=== PATIENT | male | born 1965 | race Caucasian/White ===

== ENCOUNTER 2018-04-19 20:06 | Inpatient (IN) | payer OTHER ==
[~2018-04-19 20:06] MED LIST: ISOVUE-370 76%-LOCM 1 ML ONE
[2018-04-19 20:55] LABS: #Basophils 0.1 thou/uL (0.0-0.2); #Eosinphils 0.3 thou/uL (0.0-0.7); #Lymphocytes 2.6 thou/uL (1.20-3.40); #Monocytes 0.9 thou/uL (0.11-0.59); #Neutrophils 4.5 thou/uL (1.40-6.50); %Basophils 1.2 % (0.0-1.0); %Eosinophils 3.8 % (0.0-10.0); %Lymphocytes 31.1 % (21.0-51.0); %Neutrophils 52.9 % (42.0-75.0); Hemoglobin 16.1 g/dL (14.0-18.0); Mean Corpuscular HGB CONC 34.8 g/dL (32.0-36.0); Mean Corpuscular Volume 88.9 fl (80.0-94.0); Mean Platelet Volume 7.2 fL (7.4-10.4); Platelet Count 239 thou/uL (130-400); RBC Distribution Width 12.2 % (11.5-14.5); White Blood Cell (WBC) Count 8.5 thou/uL (4.8-10.8)
[2018-04-19 20:59] LABS: INR-International Normal Ratio 1.1; PTT 28.9 SEC (22.9-36.1); Prothrombin Time 13.8 SEC (12.0-14.7)
[2018-04-19 21:01] LABS: ALT (SGPT) 25 U/L (8-55); AST (SGOT) 21 U/L (5-34); Albumin 3.9 g/dL (3.5-5.0); Alkaline Phosphatase 80 U/L (40-150); Anion Gap 13 mmol/L (10-20); BUN (Urea Nitrogen) 14 mg/dL (8.4-25.7); Bilirubin, Total 0.4 mg/dL (0.2-1.2); Calc. Creatinine Clearance 0 mL/min (70-130); Calcium 8.8 mg/dL (7.8-10.44); Carbon Dioxide 23 mmol/L (22-29); Chloride 107 mmol/L (98-107); Estimated GFR-MDRD 59; Globulin 2.5 g/dL (2.4-3.5); Glucose 88 mg/dL (70-105); Lipase 35 U/L (8-78); Magnesium 2.4 mg/dL (1.6-2.6); Potassium 4.4 mmol/L (3.5-5.1); Protein, Total 6.4 g/dL (6.0-8.3); Sodium 139 mmol/L (136-145)
[2018-04-19 21:06] LABS: CKMB 0.5 ng/mL (0-6.6); Troponin I Less than 0.010 ng/mL (< 0.028)
[2018-04-19 21:14] LABS: Bilirubin Negative (Negative); Blood, Urine Negative (Negative); Clarity CLEAR (Clear); Glucose, Urine (Dipstick) Negative (Negative); Leukocyte Negative (Negative); Nitrite Negative (Negative); Protein, Urine (Dipstick) Negative (Neg-Trace); Specific Gravity, Urine 1.008 (1.002-1.036); Urobilinogen 0.2 mg/dL (0.2-1.0)
--- NOTE | 2018-04-19 21:56 | RAD ---
PORTABLE UPRIGHT FRONTAL CHEST RADIOGRAPH: 04/19/2018 HISTORY: Weakness. Dizziness. Diarrhea. COMPARISON: None. FINDINGS: No pneumothorax or pleural fluid. No focal consolidation or alveolar edema. Heart and mediastinal c ontours appear grossly unremarkable. There are a few punctate foci of nonspecific lucency overlying the soft tissues in the left axillary region and the left chest wall. These foci may represent subtle areas of subcutaneous gas, in the pr oper clinical setting. Clinical correlation is required. Follow-up PA and lateral chest imaging may be beneficial. IMPRESSION: Questionable small foci of subcutaneous gas versus artifact within the left chest wall. No lobar con solidation or alveolar edema. POS: [facility]
--- NOTE | 2018-04-19 21:57 | CT ---
CT HEAD WITHOUT CONTRAST: 04/19/2018 HISTORY: Dizziness and weakness. COMPARISON: 05/03/2016 TECHNIQUE: Serial axial CT imaging at 5 mm intervals, from the vertex through the skull base, without contrast. FINDINGS: The imaged paranasal sinuses and mastoid air cells are well aerated. No displaced calvarial fracture . No intracranial hemorrhage, midline shift, mass effect, or ventricular enlargement. IMPRESSION: No acute findings. POS: [facility]
--- NOTE | 2018-04-19 22:47 | CT ---
CT ANGIOGRAM OF THE CHEST AND ABDOMEN: 04/19/2018 HISTORY: Dizziness and weakness. Evaluate for aortic dissection. COMPARISON: None. TECHNIQUE: Serial axial CT imaging is obtained at 2.5 mm intervals, from the thoracic inlet through the aortic b ifurcation, with IV contrast, using a CT angiogram protocol. Coronal and sagittal 3D reformatted jessica ging obtained. FINDINGS: No lymphadenopathy is noted within the chest. Scattered coronary arterial calcification is seen. The innominate artery is tortuous. Origins of the great vessels appear unremarkable. No evidence fo r dissection or aneurysm is seen involving the thoracic aorta. There is atherosclerotic calcificatio n of the abdominal aortic arch distally. No pleural, pericardial, or mediastinal fluid is noted. The lung parenchyma appears grossly unremarkable bilaterally. No acute osseous abnormality is seen w ithin the chest. No endobronchial lesion is evident. The pelvis is not imaged on this exam. Imaged bowel demonstrates no evidence for obstruction. There is diverticulosis of the descending colon, incompletely assessed on this exam. The appendix appears within normal limits. The liver, gallbladder, spleen, pancreas, adrenal glands, and kidneys appear grossly unremarkable. There is no evidence for aneurysm or dissection of the abdominal aorta. The celiac axis, superior me senteric artery, bilateral renal arteries, and inferior mesenteric artery are all patent. There is mild contour irregularity involving the proximal aspect of the left common iliac artery, med ially, on axial image 171, sagittal image 101, and coronal image 104. This could represent a small s accular aneurysm of the proximal left common iliac artery versus a fenestration of the distal abdomin al aorta. This is not an acute abnormality. If this represents a saccular aneurysm, it measures in the 8-9 mm range. There is degenerative change at the lumbosacral junction with disk space narrowing and degenerative endplate change. IMPRESSION: No evidence for aneurysm or dissection of the abdominal aorta. There is subtle contour irregularity involving the proximal left common iliac artery, for which a follow-up study in six months is suggest ed. No acute findings are evident on this exam. POS: [facility]
--- NOTE | 2018-04-19 23:49 | PDOC.FPRHP ---
- History of Present Illness Chief Complaint: dizziness, dehydration, diarrhea History of Present Illness: PCP: RENETTA 52 yo M w/ PMH of HTN, HLD presents to ED for evaluation of dizziness that he states started today that occurs when rising from sitting or sitting to standing. He does endorse a recent history of diarrhea of up to 12x/day that has decreased to 2x/day over the last 2 days. He was seen by pcp in OP office and started on cipro and encouraged to increase PO intake. He reports dizziness occurs after standing or from lying to sitting. He denies associated cp, sob. Does endorse some nausea, but denies vomiting. Denies melena, BRBPR, fever, chills, sweats. Additionally pt reports occasional feeling that his mouth feels heavy as if he left the dentist. Denies tingling periorally or spasm/tetany. ED Course: 81 mg aspirin - Allergies/Adverse Reactions Allergies Allergy/AdvReac Type Severity Reaction Status Date / Time Sulfa (Sulfonamide Allergy "low blood Verified 04/20/18 00:53 Antibiotics) pressure & passed out" - Home Medications Medication Instructions Recorded Confirmed Type Aspirin [Aspirin EC] 81 mg PO QAM 09/19/16 04/20/18 History Atorvastatin Calcium 40 mg PO QPM 09/19/16 04/20/18 History Cyclobenzaprine [Flexeril] 10 mg PO BID 09/19/16 04/20/18 History Esomeprazole Magnesium [NexIUM] 20 mg PO QAM 09/19/16 04/20/18 History Fluticasone Propionate [Flonase 2 spray EA NARE DAILY 09/19/16 04/20/18 History Nasal [place]] Metoprolol Succinate 25 mg PO QPM 09/19/16 04/20/18 History Naproxen [Naproxen] 500 mg PO BID 09/19/16 04/20/18 History Pregabalin [Lyrica] 150 mg PO TID 09/19/16 04/20/18 History Montelukast Sodium [Singulair] 10 mg PO DAILY 04/20/18 04/20/18 History Multivitamin [Multi-Vitamin Daily] 1 tablet PO DAILY 04/20/18 04/20/18 History [place]-3 Fatty Acids/Fish Oil 1 cap PO DAILY 04/20/18 04/20/18 History [[place] 3 Fish Oil Softgel] Ranitidine HCl 150 mg PO BID 04/20/18 04/20/18 History - History PMHx: HTN, HLD, h/o subdural hematoma, h/o cervical spinal fusion PSHx: cervical spinal fusion, colonoscopy X2, rt wrist surgery, pediatric bladder surgery FHx: Stroke paternal/maternal grandparents, "some heart attacks" Social: current everyday tobacco user smokeless 1 can/day for 40 years, no alcohol, no drugs - Review of Systems General: denies: fever/chills, weight/appetite/sleep changes, fatigue Eyes: reports: vision changes. denies: eye pain ENT: denies: nasal congestion, rhinorrhea Respiratory: denies: cough, congestion, shortness of breath Cardiovascular: denies: chest pain, palpitation, edema Gastrointestinal: reports: nausea, diarrhea. denies: vomiting, constipation, abdominal pain, GI bleeding Genitourinary: denies: incontinence, dysuria Skin: denies: rashes, lesions Musculoskeletal: denies: pain, arthritis/arthralgias Neurological: reports: numbness, weakness. denies: syncope - Vital signs BP: 137/103 HR: 90 RR: 15 Tmax: 98.2 Pox: 97% on RA Wt: 136Kg - Physical Exam Constitutional: NAD, awake, alert and oriented HEENT: normocephalic and atraumatic, PERRLA, EOMI, conjunctiva clear, no scleral icterus, grossly normal vision, TM's clear and intact, grossly normal hearing, MMM, oropharynx clear Neck: supple, trachea midline, no LAD, no JVD, no thyromegaly Heart: RRR, normal S1/S2, no murmurs/rubs/gallops, pulses present, no edema Lungs: CTAB, no respiratory distress, good air movement, no rales/rhonchi, no wheezing, no retractions Abdomen: soft, non-tender, bowel sounds present, no masses/distention Musculoskeletal: normal structure, normal tone Neurological: no focal deficit, CN II-XII intact, other (Negative head impulse, no nystagmus, negative test of skew) Skin: no rash/lesions, good turgor, capillary refill <2 seconds Heme/Lymphatic: no unusual bruising or bleeding, no purpura Psychiatric: normal mood and affect FMR H&P: Results - Labs Result Diagrams: 04/19/18 20:19 04/19/18 20:19 Lab results: WBC 8.5 thou/uL (4.8-10.8) 04/19/18 20:19 Hgb 16.1 g/dL (14.0-18.0) 04/19/18 20:19 Hct 46.3 % (42.0-52.0) 04/19/18 20:19 MCV 88.9 fl (80.0-94.0) 04/19/18 20:19 Plt Count 239 thou/uL (130-400) 04/19/18 20:19 Neutrophils % 52.9 % (42.0-75.0) 04/19/18 20:19 Sodium 139 mmol/L (136-145) 04/19/18 20:19 Potassium 4.4 mmol/L (3.5-5.1) 04/19/18 20:19 Chloride 107 mmol/L (98-107) 04/19/18 20:19 Carbon Dioxide 23 mmol/L (22-29) 04/19/18 20:19 BUN 14 mg/dL (8.4-25.7) 04/19/18 20:19 Creatinine 1.27 mg/dL (0.6-1.3) 04/19/18 20:19 Glucose 88 mg/dL (70-105) 04/19/18 20:19 Calcium 8.8 mg/dL (7.8-10.44) 04/19/18 20:19 Total Bilirubin 0.4 mg/dL (0.2-1.2) 04/19/18 20:19 AST 21 U/L (5-34) 04/19/18 20:19 ALT 25 U/L (8-55) 04/19/18 20:19 Alkaline Phosphatase 80 U/L (40-150) 04/19/18 20:19 CK-MB (CK-2) 0.5 ng/mL (0-6.6) 04/19/18 20:19 Serum Total Protein 6.4 g/dL (6.0-8.3) 04/19/18 20:19 Albumin 3.9 g/dL (3.5-5.0) 04/19/18 20:19 Lipase 35 U/L (8-78) 04/19/18 20:19 Urine Ketones Negative mg/dL (Negative) 04/19/18 21:01 Urine Blood Negative (Negative) 04/19/18 21:01 Urine Nitrite Negative (Negative) 04/19/18 21:01 Ur Leukocyte Esterase Negative (Negative) 04/19/18 21:01 - EKG Interpretation EKG: low voltage, otherwise NSR - Radiology Interpretation Chest x-ray Status: report reviewed by me (NAD, possible air is artifact confirmed no free air on CT) CT scan - chest Status: report reviewed by me (No acute disease) CT scan - head Status: report reviewed by me (No acute intracranial process) FMR H&P: A/P - Problem List (1) Dehydration Current Visit: Yes Status: Acute Code(s): E86.0 - DEHYDRATION (2) Neuropathy Current Visit: Yes Status: Acute Code(s): G62.9 - POLYNEUROPATHY, UNSPECIFIED (3) Perioral numbness Current Visit: Yes Status: Acute Code(s): R20.0 - ANESTHESIA OF SKIN (4) Back spasm Current Visit: Yes Status: Acute Code(s): M62.830 - MUSCLE SPASM OF BACK (5) Colitis Current Visit: Yes Status: Acute Code(s): K52.9 - NONINFECTIVE GASTROENTERITIS AND COLITIS, UNSPECIFIED (6) Hypertension Current Visit: Yes Status: Acute Code(s): I10 - ESSENTIAL (PRIMARY) HYPERTENSION - Plan 1) Dehydration: s/p 2lns in er, will check am orhtostatics and fluid resuscitate with LR @ 200mls/hr -admit to stroke obs as ER concered with possible TIA vs cva 2) Perioral tingling: pts labs wnl, will admit to stroke OBs although pts neuro exam is normal and he has a negative hints exam in addition to normal head CT. Will give aspirin statin and continue neuro checks. Ca++ normal regarding tingling, possibly 2/2 volume depletion from colitis, continue to monitor and consider am MRI 3) Colitis: per history, symptoms improving, will give last dose of cipro and IVF resuscitate 4) Neuropathy: home meds 5) HTN: Pt hypotensive now and slightly volume depleted, replenish fluids and hold PM BP meds 6) Code Status: Full 7) PPX: pepcid and scds for gi and DVT ppx respectively Disposition/LOS: stable, </= 2 days FMR H&P: Upper Level - Pertinent history Pt is a 52 yo M who presents to ED with 1 week hx of diarrhea. Saw his PCP and was given a shot of rocephin, cipro rx and phenergan rx. States he was having 10 -12 bms of diarrhea daily at peak but now mostly resolved, didn't have diarrhea today, finishing up cipro tomorrow. He came in today with his dad and step mom as he was feeling very weak, dizzy, like he would faint when he got up to walk and felt some "chin heaviness like when you go to the dentist." - Pertinent findings 119/77 78 18 98.2 95% RA Gen: does not appear in distress, morbid obesity HEENT: oropharynx clear without exudates or erythema Lungs: CTA Cardiac: RRR, no murmurs, gallops, clicks, rubs, difficult to ascultate to full extent due to habitus LE: no swelling Neuro: CN II-XII intact, no cerebellar findings, no dysdiadychokinesia - Plan Date/Time: 04/19/18 1237 I, Miranda Barron, have evaluated this patient and agree with findings/plan as outlined by music internship resident. Pertinent changes/additions are listed here. 1. moderate dehydration 2/2 gastroenteritis-orthostatics positive, pt is very dizzy upon standing, living at home alone right now as his g/f is out of town. Re-hydrate with NS. Zofran. Repeat orthostatics in morning. Given cipro by his PCP and diarrhea is mostly resolved, but was having 10-12 bms per day. Finish cipro he was given. Since diarrhea is resolved cannot consider c.diff, if diarrhea returns consider. 2. perioral numbness- labs were normal for electrolyte abnormalities-possibly related to orthostasis, but ER wants to r/o CVA, admit to stroke unit and neuro checks, consider AM MRI, brain CT unremarkable, normal neuro exam per me. 3. back muscle spasm-continue flexeril 4. neuropathy- home lyrica 5. htn- hold metrolol slight hypotension due to dehydration Attending Addendum - Attending Addendum Date/Time: 04/20/18 [id number] I personally evaluated the patient and discussed the management with Dr. Becerra. I agree with the History, Examination, Assessment and Plan documented above with any addition or exceptions noted below. Neuro exam is normal. Our clinical suspicion of CVA is low. He does not have any NIHSS defined disabling deficits. Numbness in mouth and and dizziness are probably from his dehydration. However, MRI can definitively evaluate for ischemia and will be considered.
[2018-04-20 00:03] LABS: Troponin I Less than 0.010 ng/mL (< 0.028)
[2018-04-20] MEDS ORDERED: Meclizine HCl 25 MG TAB PO PRN (00:36)
[2018-04-20] MEDS ORDERED: Acetaminophen 325 MG TAB PO PRN (00:36)
[2018-04-20] MEDS ORDERED: Ondansetron ODT 4 MG TAB PO PRN (00:36)
[2018-04-20] MEDS ORDERED: Ondansetron HCl/PF 4 MG/2 ML Vial IVP PRN (00:36)
[2018-04-20] MEDS: Lactated Ringer's 1,000 ML IV SCH ×3 (01:21→11:47)
[2018-04-20] MEDS ORDERED: Pregabalin 75 MG CAP PO SCH ×2 (01:45→09:00)
[2018-04-20 02:37] VITALS: BMI 46.7
[2018-04-20 02:59] LABS: Troponin I Less than 0.010 ng/mL (< 0.028)
[2018-04-20 03:06] LABS: Cardiac Risk 3.6 (Less than 4.5)
[2018-04-20] MEDS ORDERED: Cipro 250 MG TAB PO SCH (06:00)
[2018-04-20] MEDS ORDERED: Multivitamin W/ Minerals 1 TAB PO SCH (09:00)
[2018-04-20] MEDS ORDERED: Aspirin 81 mg Enteric Coated Tablet PO SCH ×2 (09:00)
[2018-04-20] MEDS ORDERED: Fish Oil 1,000 MG CAP PO SCH (09:00)
[2018-04-20] MEDS ORDERED: Fluticasone Propionate Nasal Spray 16 gm Bottle NASAL SCH (09:00)
[2018-04-20] MEDS ORDERED: Naproxen 500 MG TAB PO SCH (09:00)
[2018-04-20] MEDS ORDERED: Famotidine 20 MG TAB PO PRN (09:00)
[2018-04-20] MEDS ORDERED: Montelukast Sodium 10 mg Tablet PO SCH (09:00)
[2018-04-20] MEDS ORDERED: Cyclobenzaprine 10 MG TAB PO SCH (09:00)
[2018-04-20] MEDS ORDERED: Famotidine 20 MG TAB PO SCH (09:00)
[2018-04-20] MEDS ORDERED: Non-Formulary Item 1 EACH (Esomeprazole Magnesium [Nexium] 20 MG) PO SCH (09:00)
--- NOTE | 2018-04-20 11:23 | PDOC.FM ---
- Subjective Subjective: Mr. Schofield says he is feeling much better this morning. His dizziness and light headedness has completely resolved and he has no further mouth symptoms. He states that his mouth felt numb and heavy like he had been at the dentist. He also has intermittent neuropathy pain from disk issues in his neck. He has seen Dr. Bro for this in the past in addition to a history of subdural hematoma in July of 2015. At that time, Dr. Arauz and Adali tried to arrange an MRI with sedation (due to clausterphobia) but it was unable to be done in our facility and after that he felt well and did not go for additional follow-up. - Objective MAR Reviewed: Yes Vital Signs & Weight: Vital Signs (12 hours) Temp Pulse Resp BP BP BP Pulse Ox 04/20/18 09:17 98 04/20/18 08:00 98.5 F 74 14 04/20/18 07:57 98.5 F 74 14 109/59 L 98 04/20/18 06:27 67 118/71 04/20/18 06:26 80 115/65 04/20/18 04:39 97.7 F 64 20 120/58 L 99 04/20/18 02:48 96 04/20/18 00:15 98.0 F 76 20 04/20/18 00:11 98.0 F 76 20 128/72 96 Weight Weight 143.426 kg I&O: 04/19/18 04/20/18 04/21/18 06:59 06:59 06:59 Intake Total 1680 Balance 1680 Result Diagrams: 04/19/18 20:19 04/19/18 20:19 EKG Reviewed by me: Yes Radiology Reviewed by me: Yes <Kerry Almanzar - Last Filed: 04/20/18 11:32> - Objective Vital Signs & Weight: Vital Signs (12 hours) Temp Pulse Resp BP BP BP Pulse Ox 04/20/18 11:37 98.6 F 72 16 106/57 L 97 04/20/18 09:17 98 04/20/18 08:00 98.5 F 74 14 04/20/18 07:57 98.5 F 74 14 109/59 L 98 04/20/18 06:27 67 118/71 04/20/18 06:26 80 115/65 04/20/18 04:39 97.7 F 64 20 120/58 L 99 Weight Weight 143.426 kg I&O: 04/19/18 04/20/18 04/21/18 06:59 06:59 06:59 Intake Total 1680 Balance 1680 Result Diagrams: 04/19/18 20:19 04/19/18 20:19 <Keaton Cheng - Last Filed: 04/20/18 15:03> Phys Exam - Physical Examination Constitutional: NAD HEENT: PERRLA, moist MMs, sclera anicteric Neck: supple Respiratory: no wheezing, clear to auscultation bilateral Cardiovascular: RRR, no significant murmur Gastrointestinal: soft, non-tender, no distention, positive bowel sounds Musculoskeletal: no edema, pulses present Neurological: non-focal, moves all 4 limbs Psychiatric: normal affect, A&O x 3 Skin: no rash, cap refill <2 seconds <Kerry Almanzar - Last Filed: 04/20/18 11:32> Dx/Plan (1) History of subdural hematoma Code(s): Z86.79 - PERSONAL HISTORY OF OTHER DISEASES OF THE CIRCULATORY SYSTEM Status: Acute (2) Back spasm Code(s): M62.830 - MUSCLE SPASM OF BACK Status: Acute (3) Colitis Code(s): K52.9 - NONINFECTIVE GASTROENTERITIS AND COLITIS, UNSPECIFIED Status : Acute (4) Dehydration Code(s): E86.0 - DEHYDRATION Status: Acute (5) Hypertension Code(s): I10 - ESSENTIAL (PRIMARY) HYPERTENSION Status: Acute (6) Neuropathy Code(s): G62.9 - POLYNEUROPATHY, UNSPECIFIED Status: Acute (7) Perioral numbness Code(s): R20.0 - ANESTHESIA OF SKIN Status: Acute - Plan Plan: 1. Moderate dehydration 2/2 gastroenteritis - s/p adequate fluid resuscitation - VS stable and labs WNL - No BM in > 24 hours - s/p > 3 days cipro OP, will discontinue 2. Oral numbness - Patient describes it as a heaviness in his mouth that has since resolved - It was never persistent and would last for 1 to 30 seconds at a time - No ongoing symptoms or focal neurologic deficits apart from slight discrepancy in L lateral gaze with how far R eye is able to look left - D/w neurosurgery who do not recommend additional imaging in at this time - Discussed recommendation for neurology f/u and he desires to do this outpatient and not wait until this evening for inpatient consult - Will refer to Dr. Arauz for f/u outpatient 3. HTN - Continue home medications, ASA and statin 4. Neuropathy - Continue home medications and consider OP f/u with Dr. Bro <Kerry Almanzar - Last Filed: 04/20/18 11:32> Attending Addendum - Attending Addendum Date/Time: 04/20/18 4730 I personally evaluated the patient and discussed the management with Dr. Almanzar I agree with the History, Examination, Assessment and Plan documented above with any addition or exceptions noted below.Patient feeling much improved no diarrhea and ambulatory status additional history of cervical degenerative disease and previous subdural hematoma related to fall while bowling in July 2017. Patient was not able to proceed with prior recommended MRI due to Claustrophobia and inability to sedate by anesthesia related to patient's body habitus. Discussed benefits of further inpatient evaluation and feel comfortable allowing discharge and f/u with Neurology as outpatient. <Keaton Cheng - Last Filed: 04/20/18 15:03>
[2018-04-20 11:38] VITALS: BP 106/57; TEMP 98.6
[2018-04-20] MEDS ORDERED: Atorvastatin Calcium 40 MG TAB PO SCH ×2 (21:00)
--- NOTE | 2018-04-21 13:19 | DIS-2 ---
DATE OF ADMISSION: 04/20/2018 DATE OF DISCHARGE: 04/20/2018 RESIDENT: Kerry Almanzar M.D. ADMITTING ATTENDING: Aurelio Ravi M.D. DISCHARGE ATTENDING: Keaton Cheng MD CONSULTS: Neurology was initially consulted however patient decided to just follow up as an outpatie nt. PROCEDURES: Brain CT (04/19/2018): No acute findings. Chest x-ray (04/19/2018): Questionable small foci of subcutaneous gas versus artifact to the left ch est wall. No lobar consolidation or alveolar edema. CT dissection (04/19/2018): No evidence of aneurysmal resection of the abdominal aorta. There is newsome btle contour irregularity involving the proximal left common iliac artery for which a followup-study in 6 months is suggested. No acute findings are evident on this exam. PRIMARY DIAGNOSIS: 1. Moderate dehydration secondary to gastroenteritis. SECONDARY DIAGNOSES: 1. Hypertension. 2. Neuropathy. 3. Oral numbness. 4. Gastroesophageal reflux disease. 5. Seasonal allergies. 6. Chronic pain. 7. Hyperlipidemia. 8. History of subdural hematoma. DISCHARGE MEDICATIONS: 1. Esomeprazole 20 mg p.o. daily. 2. Lyrica 150 mg p.o. t.i.d. 3. Aspirin 81 mg p.o. daily. 4. Naproxen 500 mg p.o. b.i.d. 5. Metoprolol 25 mg p.o. at bedtime. 6. Fluticasone 2 sprays each daily. 7. Flexeril 10 mg p.o. b.i.d. 8. Atorvastatin 40 mg p.o. at bedtime. 9. Ranitidine 150 mg p.o. b.i.d. 10. Singulair 10 mg p.o. daily. 11. [place] 3 fish oil 1 cap daily. 12. Multivitamin 1 cap daily. DISCONTINUED MEDICATIONS: None. HISTORY OF PRESENT ILLNESS AND HOSPITAL COURSE: Mr. 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 He also no roxane on admission to be having some oral symptoms such as numbness, heaviness and possibly some slurre d speech. A CT was done which was negative and he was admitted to the hospital for fluids and furthe r neurological evaluation. The patient developed no focal neurologic findings and he reported that t he numbness in his mouth would intermittently come and go, but had resolved since the time of admissi on. The case was discussed with neurosurgery regarding whether a CT was appropriate and it was recom mended that patient arrange for Neurology followup prior to any further imaging. He desired to leave and to follow up outpatient. He has established with Dr. Arauz and plans to follow up with him. At this time, I recommended to continue aspirin, statin, and blood pressure control as well as absence o f any tobacco and regular exercise and weight loss. Regarding the CT findings above, a repeat CT may be considered in 6 months. Otherwise, he is stable for discharge. DISPOSITION: Stable. DISCHARGE INSTRUCTIONS: 1. Location: Home. 2. Diet: Heart healthy. 3. Activity: As tolerated. 4. Followup: With PCP within [address] Arauz within 2-3 weeks.
== END 2018-04-20 12:34 | disposition home or self-care (01) | DRG 641 ==
LOC: ERS 20:06 → 2SE 04-20
PROVIDERS: ADMIT Family Medicine; ATTEND Family Medicine
DX: E86.0 Dehydration (principal); K52.9 Noninfective gastroenteritis and colitis, unspecified; G62.9 Polyneuropathy, unspecified; R20.0 Anesthesia of skin; I95.9 Hypotension, unspecified; M62.830 Muscle spasm of back; I10 Essential (primary) hypertension; E78.5 Hyperlipidemia, unspecified; Z72.0 Tobacco use; Z86.79 Personal history of other diseases of the circulatory system
CPT/HCPCS: 36415; 70450; 71045; 71275; 80053; 80061; 81003; 82553; 83690; 83735; 84443; 84484; 85025; 85610; 85730; 93005; 94760; A4216; J7120; Q0162